=== PATIENT | male | born 1960 | race Caucasian/White ===

== ENCOUNTER 2019-05-17 11:38 | Day surgery (SDC) | payer BC ==
[2019-05-16 10:14] VITALS: BMI 25.0
[~2019-05-17 11:38] MED LIST: LACTATED RINGERS 1,000 ML IV SCH
[2019-05-17 12:37] VITALS: TEMP 97.8
[2019-05-17] MEDS ORDERED: PROPOFOL 10 MG/ML 20 ML VIAL IV ONE (13:20)
[2019-05-17 13:52] VITALS: RESP 16
--- NOTE | 2019-05-17 13:56 | P.PCN ---
Date of Procedure: 05/17/19 Procedure(s) Performed: BRIEF HISTORY: Patient is a 58-year-old pleasant white male, scheduled for an elective colonoscopy as a part of evaluation of prior history of colon polyps. Last colonoscopy was 4 years ago and was noted to have adenoma. PROCEDURE PERFORMED: Colonoscopy. PREOPERATIVE DIAGNOSIS: . History Of colon polyps. IV sedation per Anesthesia. PROCEDURE: After informed consent was obtained, the patient, was brought into the endoscopy unit. IV sedation was administered by Anesthesia under continuous monitoring. Digital rectal examination was normal. Initially the Olympus CF-160 flexible video colonoscope was then inserted in the rectum, gradually advanced into the cecum without any difficulty. Careful examination was performed as the scope was gradually being withdrawn. Ileocecal valve and the appendiceal orifice were visualized and appeared normal. Prep was excellent. Mucosa of the cecum, ascending colon, transverse colon, descending colon, sigmoid colon, and rectum appeared normal. Scattered sigmoid diverticulosis seen. Retroflexion was performed in the rectum and small internal hemorrhoids were seen. The patient tolerated the procedure well. IMPRESSION: Normal-appearing colon from rectum to cecum with no evidence of colorectal neoplasia Scattered sigmoid diverticulosis Small internal hemorrhoids. RECOMMENDATIONS: Findings of this examination were discussed with the patient as well as his family. He was advised to have a repeat surveillance colonoscopy in 5 years because of the prior history of colon polyps.
[2019-05-17 14:08] VITALS: BP 92/43; PULSE 62
== END 2019-05-17 14:29 | disposition home or self-care (01) ==
LOC: ORWHC2ENDO 11:38
PROVIDERS: ATTEND Internal Medicine Gastroenterology
DX: Z12.11 Encounter for screening for malignant neoplasm of colon (principal); Z86.010 Personal history of colon polyps; K57.30 Diverticulosis of large intestine without perforation or abscess without bleeding; K64.8 Other hemorrhoids; I10 Essential (primary) hypertension; J45.909 Unspecified asthma, uncomplicated; Z79.899 Other long term (current) drug therapy
CPT/HCPCS: J2704; G0105; 45378